=== PATIENT | male | born 1985 | race Caucasian/White ===

== ENCOUNTER 2018-05-20 20:15 | Emergency (ER) | payer OTHER ==
[2018-05-20 20:24] VITALS: BP 152/92; PULSE 69; RESP 20; TEMP 98.2
--- NOTE | 2018-05-20 21:25 | ED ---
General Adult HPI - General Chief complaint: Abdominal Pain Stated complaint: poss UTI or stones Time Seen by Provider: 05/20/18 20:55 Source: patient Mode of arrival: ambulatory Limitations: no limitations - History of Present Illness Initial comments: Dictation was produced using [employer] dictation software. please excuse any grammatical, word or spelling errors. Chief Complaint: 32-year-old male presents with dysuria, hematuria and bilateral lower back pain. History of Present Illness: He's had these symptoms for approximately 10 days. Patient has been having urinary symptoms. Patient complains of bilateral lower flank pain. Does report having lead in his urine. Patient has any constitutional symptoms. Patient denies any nausea vomiting. Patient tolerating by mouth. He spoke about this to his significant other and was instructed to come to the emergency department for possibility of kidney stones. Patient denies any mitigating or exacerbating factors. The ROS documented in this emergency department record has been reviewed and confirmed by me. Those systems with pertinent positive or negative responses have been documented in the HPI. All other systems are other negative and/or noncontributory. PHYSICAL EXAM: General Impression: Alert and oriented x3, not in acute distress HEENT: Normocephalic atraumatic, extra-ocular movements intact, pupils equal and reactive to light bilaterally, mucous membranes moist. Cardiovascular: Heart regular rate and rhythm, S1&S2 audible, no murmurs, rubs or gallops Chest: Lungs clear to auscultation bilaterally, no rhonchi, no wheeze, no rales Abdomen: Bowel sounds present, abdomen soft, non-tender, non-distended, no organomegaly Musculoskeletal: Pulses present and equal in all extremities, no peripheral edema Motor: Power 5/5 bilaterally, no focal deficits noted Neurological: CN II-XII grossly intact, no focal motor or sensory deficits noted Skin: Intact with no visualized rashes Psych: Normal affect and mood ED course: 32-year-old male with chief complaint of hematuria, dysuria and bilateral flank pain vital signs upon arrival are within acceptable limits. Patient is well-appearing nature. Physical examination appears benign. Patient expressed significant concern for cost of ER visit and cost of ER testing and laboratory evaluation. Patient is well-appearing. Highly doubt that patient's symptoms reflect large symptomatic stone. Given the patient has dysuria with blood with the end of urination is concerned that patient may have unspecified urethritis. Patient given urinary hat and told to urinated in the cup to see if he passes a stone. Patient given referral to Dr. Waggoner for outpatient primary care physician. Patient told that if his symptoms progress or get worse he will need to seek medical attention for imaging studies and laboratory evaluation. he is understandable agreeable to this plan.Urinalysis positive for greater than 182 white blood cells. There is trace protein, moderate blood. Patient's urinalysis consistent with urinary tract infection. Given the patient has bilateral flank pain is more likely that his symptoms are secondary to hemorrhagic cystitis versus instructing nephrolithiasis. he given prescription for antibiotics. Told to follow-up with primary care physician upon discharge. Patient has no concerns about STD. He is sexually active with only one partner. - Related Data Previous Rx's Medication Instructions Recorded Sulfamethox-Tmp 800-160Mg [Bactrim 1 tab PO Q12HR 7 Days #14 tab 05/20/18 DS 800-160 mg] Allergies Allergy/AdvReac Type Severity Reaction Status Date / Time Penicillins Allergy Rash/Hives Verified 05/20/18 21:13 Review of Systems ROS Statement: Those systems with pertinent positive or pertinent negative responses have been documented in the HPI. ROS Other: All systems not noted in ROS Statement are negative. Past Medical History Past Medical History: No Reported History History of Any Multi-Drug Resistant Organisms: None Reported Past Surgical History: No Surgical Hx Reported Past Psychological History: Depression Smoking Status: Current every day smoker Past Alcohol Use History: Occasional Past Drug Use History: None Reported General Exam Limitations: no limitations Course Vital Signs 05/20/18 20:19 Temperature 98.2 F Pulse Rate 69 Respiratory 20 Rate Blood Pressure 152/92 O2 Sat by Pulse 100 Oximetry Medical Decision Making - Lab Data Lab Results 05/20/18 Range/Units 21:33 Urine Color Yellow Urine Appearance Cloudy (Clear) Urine pH 5.5 (5.0-8.0) Ur Specific [place] 1.014 (1.001-1.035) Urine Protein Trace H (Negative) Urine Glucose (UA) Negative (Negative) Urine Ketones Negative (Negative) Urine Blood Moderate H (Negative) Urine Nitrite Negative (Negative) Urine Bilirubin Negative (Negative) Urine Urobilinogen <2.0 (<2.0) mg/dL Ur Leukocyte Esterase Large H (Negative) Urine RBC 99 H (0-5) /hpf Urine WBC >182 H (0-5) /hpf Urine WBC Clumps Moderate H (None) /hpf Ur Squamous Epith Cells 5 H (0-4) /hpf Urine Mucus Rare H (None) /hpf Disposition Clinical Impression: Urethritis, UTI (urinary tract infection) Disposition: HOME SELF-CARE Condition: Good Instructions (If sedation given, give patient instructions): Urinary Tract Infection in Men (ED) Prescriptions: Sulfamethox-Tmp 800-160Mg [Bactrim DS 800-160 mg] 1 tab PO Q12HR 7 Days #14 tab Is patient prescribed a controlled substance at d/c from ED?: No Referrals: None,Stated [Primary Care Provider] - 1-2 days Christin Waggoner MD [REFERRING] - 1-2 days Time of Disposition: 22:21
[2018-05-20 21:55] LABS: Appearance,Urine Cloudy (Clear); Bilirubin,Urine Negative (Negative); Blood,Urine Moderate (Negative); Color,Urine Yellow; Glucose,Urine (UA) Negative (Negative); Ketones,Urine Negative (Negative); Leukocyte Esterase,Urine Large (Negative); Mucus,Urine Rare /hpf; Nitrite,Urine Negative (Negative); PH, Urine 5.5 (5.0-8.0); Protein,Urine Trace (Negative); RBC,Urine 99 /hpf (0-5); Specific Gravity,Urine 1.014 (1.001-1.035); Squamous Epithelial Cell,Urine 5 /hpf (0-4); Urobilinogen,Urine <2.0 mg/dL (<2.0)
== END 2018-05-20 22:37 | disposition home or self-care (01) ==
LOC: EC 20:15
DX: N34.2 Other urethritis (principal); F17.200 Nicotine dependence, unspecified, uncomplicated; Z88.0 Allergy status to penicillin
CPT/HCPCS: 81001; 87086; 99284

== ENCOUNTER 2019-09-20 16:43 | Emergency (ER) | payer OTHER ==
--- NOTE | 2019-09-20 19:21 | XR ---
EXAMINATION TYPE: XR ribs LT w pa chest xray DATE OF EXAM: 09/20/2019 COMPARISON: NONE HISTORY: Left-sided rib pain TECHNIQUE: 5 views FINDINGS: The lungs are clear of infiltrate. Heart and mediastinum are normal. Diaphragm is normal. B [place] thorax is intact. The left ribs appear intact. There is no pleural effusion or pneumothorax. IMPRESSION: Negative left rib exam. Normal chest
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
[2019-09-22 09:37] VITALS: BP 167/96; PULSE 60; RESP 16; TEMP 98.1
== END 2019-09-20 20:28 | disposition home or self-care (01) ==
LOC: EC 16:43
DX: S20.212A Contusion of left front wall of thorax, initial encounter (principal); F17.200 Nicotine dependence, unspecified, uncomplicated; Z88.0 Allergy status to penicillin; W17.89XA Other fall from one level to another, initial encounter
CPT/HCPCS: 99283

== ENCOUNTER → 2022-07-29 | Outpatient (CLI) | payer BC ==
--- NOTE | 2022-07-30 09:26 | MR ---
EXAMINATION TYPE: MR shoulder RT wo con DATE OF EXAM: 07/29/2022 COMPARISON: No radiographic correlation available HISTORY: 36-year-old male S46.001A,M25.511,G56.01,M79.641, with right shoulder pain and numbness x 6 months, decreased ROM TECHNIQUE: Multiplanar, multisequence imaging of the right shoulder is performed without contrast. FINDINGS: There is medial subluxation of the lung and biceps tendon the upper bicipital groove. The i ntragastric portion demonstrates extensive inhomogeneous signal. There is mild renal synovial fluid. Extensive attritional tearing of the subscapularis tendon with some fluid delaminating along its myot endinous junction. There is moderate degenerative change at the acromioclavicular joint with joint space narrowing and c apsular hypertrophy. However, in addition, there is extensive marrow edema especially on the distal c lavicle side of the joint with capsular periarticular soft tissue edema as well. No significant mass effect onto the underlying cuff. No significant fluid distention within the subac romial/subdeltoid bursa. Extensive heterogeneity throughout the supraspinatus and infraspinatus tendons with a small articular sided tear at the infraspinatus tendon measuring 8 x 8 mm. Some additional scattered intrasubstance change and bursal sided fraying is present along the infraspinatus tendon. No high-grade partial or full-thickness tear is identified of either supraspinatus or infraspinatus t endons. No significant fatty atrophy of the rotator cuff musculature. There is subtle edema within the teres minor muscle belly that may be seen with quadrilateral space syndrome but no mass lesion identified i n the quadrilateral space. Findings can also be seen on an idiopathic basis. Clinically correlate. Some edematous soft tissue replacement noted in the axillary recess but no significant thickening of the coracohumeral ligament. There is mild thinning of humeral head articular cartilage. There is a tear of the superior labrum ex tending back around to the inferior aspect of the posterior labrum suspected ganglion cyst developing and extending medially towards the suprascapular notch measuring 1.5 x 0.5 cm. Possible separation o f the anterior labrum No os acromiale. Questionable subtle small Hill-Sachs deformity measuring 1.2 cm wide and 3 mm deep. Findings may be due to bony irregularity relating to the insertional infraspinatus tendinosis. No suspicious bone marrow replacement. Patchy red marrow hyperplasia is present. IMPRESSION: 1. Diffuse rotator cuff tendinosis. Small articular sided tear of the infraspinatus tendon measuring 8 x 8 mm and additional scattered intrasubstance change and bursal sided fraying of the infraspinatus tendon. 2. Large attritional tear of the subscapularis tendon allowing for slight medial subluxation of the l nehemiah head biceps tendon. 3. Questionable small Hill-Sachs deformity measuring 1.2 cm wide and 3 mm deep versus bony irregulari ty relating to insertional infraspinatus tendinosis. Correlate for any history of prior shoulder disl ocation. 4. Moderate AC joint OA but with prominent bone marrow and capsular/periarticular edema. Findings cou ld reflect a mild AC joint sprain versus acute exacerbation of underlying OA. 5. Moderate intracapsular long head biceps tendinosis. Some mild synovitis in the adjacent rotator cu ff interval. 6. Suspect extensive labral tear extending nearly circumferentially around. Developing 1.5 x 0.5 cm g anglion cyst extending toward the suprascapular notch.
== END | disposition home or self-care (01) ==
LOC: RADMRIMAIN 05:59
PROVIDERS: ATTEND Orthopaedic Surgery Hand Surgery
DX: S46.001A Unspecified injury of muscle(s) and tendon(s) of the rotator cuff of right shoulder, initial encounter (principal); G56.01 Carpal tunnel syndrome, right upper limb; G56.02 Carpal tunnel syndrome, left upper limb; M67.411 Ganglion, right shoulder; M67.813 Other specified disorders of tendon, right shoulder; M19.011 Primary osteoarthritis, right shoulder; M65.9 Synovitis and tenosynovitis, unspecified

== ENCOUNTER → 2022-11-25 | Outpatient (CLI) | payer BC ==
[2022-11-25 16:35] LABS: HCT 51.6 % (39.6-50.0); HGB 17.1 d/dL (13.0-17.0); MCH 29.6 pg (27.0-32.0); MCHC 33.1 d/dL (32.0-37.0); MCV 89.4 FL (80.0-97.0); Mean Platelet Volume 12.5 FL (9.5-12.2); NRBC Per 100 WBC 0 X 10*3/uL (0.00-0.01); Platelet Count 206 X 10*3/uL (140-440); RBC 5.77 X 10*6/uL (4.40-5.60); RDW 12.5 % (11.5-14.5); WBC 8.19 X 10*3/uL (4.50-10.00)
[2022-11-25 16:40] LABS: BUN/Creat Ratio 14.73 Ratio (12.00-20.00); Blood Urea Nitrogen 16.2 mg/dL (9.0-27.0); Calcium 9.8 mg/dL (8.7-10.3); Carbon Dioxide 22.2 mmol/L (21.6-31.8); Chloride 104 mmol/L (96-109); Glucose 126 mg/dL (70-110); Potassium 4.8 mmol/L (3.5-5.5); Sodium 139 mmol/L (135-145)
== END | disposition home or self-care (01) ==
LOC: LABWHC1 08:58
PROVIDERS: ATTEND Internal Medicine Cardiovascular Disease
DX: I10 Essential (primary) hypertension (principal)
CPT/HCPCS: 36415; 80048; 82088; 82533; 83835; 84244; 84443; 85027